=== PATIENT | male | born 1980 | race Caucasian/White ===

== ENCOUNTER 2018-08-07 15:29 | Emergency (ER) | payer OTHER ==
[~2018-08-07] VITALS: Ht 208.3 cm; Wt 149.7 kg
[~2018-08-07 15:29] MED LIST: ALBU90OI INH; CYCL10 PO; METH40 PO; Mobic15 MG PO; Zithromax250 MG PO
[2018-08-07] MEDS ORDERED: TESTOSTERO30 MG/1.5 INJ (15:44)
== END 2018-08-07 16:42 | disposition home or self-care (01) ==
LOC: ER 15:29
DX: L98.8 Other specified disorders of the skin and subcutaneous tissue (principal); Z79.899 Other long term (current) drug therapy
CPT/HCPCS: 99282

== ENCOUNTER 2023-10-03 10:24 | Emergency (ER) | payer OTHER ==
[~2023-10-03] VITALS: Ht 208.3 cm; Wt 136.1 kg
[~2023-10-03 10:24] MED LIST changes: +TESTOSTERO30 MG/1.5 INJ
[2023-10-03 10:34] VITALS: BP 143/99
[2023-10-03] MEDS ORDERED: ELIQUIS5 M2 PO (10:49)
== END 2023-10-03 10:53 | disposition home or self-care (01) ==
LOC: ER 10:24
DX: I82.432 Acute embolism and thrombosis of left popliteal vein (principal); I82.532 Chronic embolism and thrombosis of left popliteal vein; F17.200 Nicotine dependence, unspecified, uncomplicated
CPT/HCPCS: 99283-25

== ENCOUNTER 2024-09-06 22:36 | Emergency (ER) | payer OTHER ==
[~2024-09-06] VITALS: Ht 208.3 cm; Wt 131.5 kg
[~2024-09-06 22:36] MED LIST changes: +CEPH500 PO; +ELIQUIS5 M2 PO; +SULTRIDS PO
[2024-09-06 22:53] VITALS: BP 137/99
[2024-09-07 01:13] LABS: Chlamydia Trachomatis Urine NOT DETECTED (NOT DETECT); Neisseria Gonorrhoea Urine NOT DETECTED (NOT DETECT)
[2024-09-07] MEDS ORDERED: Vibramycin100 MG PO (01:17)
[2024-09-07] MEDS ORDERED: Doxycycline Hyclate 100 MG TAB PO ONE (01:20)
== END 2024-09-07 01:48 | disposition home or self-care (01) ==
LOC: ER 22:36
PROVIDERS: Physician Assistant
DX: A64 Unspecified sexually transmitted disease (principal); F17.200 Nicotine dependence, unspecified, uncomplicated; Z79.899 Other long term (current) drug therapy
CPT/HCPCS: 87491; 87591; 96372; 99283; A9270; J0696

== ENCOUNTER 2024-11-01 22:00 | Emergency (ER) | payer OTHER ==
[~2024-11-01] VITALS: Ht 208.3 cm; Wt 127.0 kg
[~2024-11-01 22:00] MED LIST changes: +Vibramycin100 MG PO
[2024-11-01 22:16] VITALS: BP 139/89
[2024-11-02 00:26] LABS: Chlamydia Trachomatis Urine NOT DETECTED (NOT DETECT); Neisseria Gonorrhoea Urine NOT DETECTED (NOT DETECT)
== END 2024-11-02 00:39 | disposition home or self-care (01) ==
LOC: ER 22:00
PROVIDERS: Physician Assistant
DX: Z20.2 Contact with and (suspected) exposure to infections with a predominantly sexual mode of transmission (principal); F17.200 Nicotine dependence, unspecified, uncomplicated; Z79.899 Other long term (current) drug therapy
CPT/HCPCS: 87491; 87591; 99283

== ENCOUNTER 2024-11-30 01:55 | Emergency (ER) | payer OTHER ==
[~2024-11-30] VITALS: Ht 208.3 cm; Wt 136.0 kg
[2024-11-30] MEDS ORDERED: PredniSONE 20 MG Tab PO ONE (05:10)
[2024-11-30] MEDS ORDERED: Ipratropium/Albuterol SulF 2.5-0.5MG/3 ML Amp INH ONE (05:10)
[2024-11-30] MEDS ORDERED: Ketorolac Tromethamine 30mg Vial IM ONE (05:10)
[2024-11-30] MEDS ORDERED: Cephalexin Monohydrate 500 MG Cap PO ONE ×2 (05:20→07:50)
[2024-11-30] MEDS ORDERED: Trimethoprim/Sulfamethoxazole DS Tab PO ONE ×2 (05:20→07:45)
[2024-11-30 05:46] LABS: CORONAVIRUS COVID-19 AG Negative (NEGATIVE); INFLUENZA A AG Negative (NEGATIVE); INFLUENZA B AG Negative (NEGATIVE)
[2024-11-30] MEDS ORDERED: Cephalexin Monohydrate 250 MG/5 ML UD BTL PO ONE (07:45)
[2024-11-30 09:15] LABS: Source, Urine Clean Catch
[2024-11-30 09:29] LABS: Appearance, Urine Clear (Clear); Bilirubin, Urine Neg (Neg); Blood, Urine 1+ (Neg); Color, Urine Yellow (P-Yellow); Glucose Qualitative, Urine Neg (Neg); Ketones, Urine Neg (Neg); Leukocyte Esterase, Urine Neg (Neg); Nitrite, Urine Neg (Neg); Protein, Urine 1+ (Neg); Urobilinogen, Urine 1+ (Normal)
[2024-11-30 09:52] LABS: Bacteria Rare /hpf; Red Blood Cells, Urine 0-2 /hpf (0-2); Squamous Epithelial Cells Rare /hpf (Few); White Blood Cells, Urine 0-2 /hpf (0-5)
[2024-11-30 11:19] LABS: Chlamydia Trachomatis Urine NOT DETECTED (NOT DETECT); Neisseria Gonorrhoea Urine NOT DETECTED (NOT DETECT)
[2024-11-30] MEDS ORDERED: CEPH500 PO (11:40)
[2024-11-30] MEDS ORDERED: BACTRIM DS TAB1 EAC1 PO (11:40)
[2024-11-30 11:50] VITALS: BP 119/78
== END 2024-11-30 11:44 | disposition home or self-care (01) ==
LOC: ER 01:55
PROVIDERS: Student in an Organized Health Care Education/Training Program
DX: L03.012 Cellulitis of left finger (principal); F17.200 Nicotine dependence, unspecified, uncomplicated
CPT/HCPCS: 20600; 36415; 71046; 73120; 81001; 84484; 85379; 87428-QW; 87491; 87591; 94640; 94664; 99284-25; A9270

== ENCOUNTER 2024-12-09 12:33 | Emergency (ER) | payer OTHER ==
[~2024-12-09] VITALS: Ht 208.3 cm; Wt 127.0 kg
[~2024-12-09 12:33] MED LIST changes: +BACTRIM DS TAB1 EAC1 PO
[2024-12-09 12:38] VITALS: BP 126/88
[2024-12-09 15:34] LABS: BASOPHILS ABSOLUTE AUTO 0.04 K/mm3 (0.00-0.23); BASOPHILS PERCENT AUTO 0 % (0-2); EOSINOPHILS ABSOLUTE AUTO 0.03 K/mm3 (0.00-0.68); EOSINOPHILS PERCENT AUTO 0 % (0-6); Hematocrit 47.4 % (37.0-53.0); IMMATURE GRAN ABSOLUTE AUTO 0.03 K/mm3 (0.00-0.10); IMMATURE GRAN PERCENT AUTO 0 % (0-1); LYMPHOCYTES ABSOLUTE AUTO 2.54 K/mm3 (0.84-5.20); LYMPHOCYTES PERCENT AUTO 24 % (21-46); MONOCYTES ABSOLUTE AUTO 0.46 K/mm3 (0.16-1.47); MONOCYTES PERCENT AUTO 4 % (4-13); Mean Corpuscular HGB 31.5 pg (26.0-34.0); Mean Corpuscular HGB Conc 33.8 g/dL (31.5-36.5); Mean Corpuscular Volume 93 fL (80-100); Mean Platelet Volume 10.1 fL (9.1-12.4); NEUTROPHILS ABSOLUTE AUTO 7.63 K/mm3 (1.96-9.15); NEUTROPHILS PERCENT AUTO 71 % (41-73); Platelet Count 283 K/mm3 (150-400); RDW Coefficient Variation 13.1 % (11.7-14.2); RDW Standard Deviation 44.8 fL (35.1-46.3); Red Blood Cell Count 5.08 M/mm3 (4.30-5.90); White Blood Cell Count 10.73 K/mm3 (4.00-11.30)
[2024-12-09] MEDS ORDERED: CEPH500 PO (16:01)
[2024-12-09] MEDS ORDERED: Bactrim Ds Tab1 EACH PO (16:01)
[2024-12-09 16:07] LABS: Albumin, Blood 3.8 g/dL (3.4-5.0); Albumin/Globulin Ratio 0.8 (0.8-1.8); Bilirubin, Total 0.4 mg/dL (0.1-1.0); Bun/Creatinine Ratio 12.7 (12.0-20.0); Calcium, Blood 9.9 mg/dL (8.5-10.1); Creatinine, Blood 0.79 mg/dL (0.60-1.20); Globulin, Blood 4.6 g/dL (2.2-4.0); Potassium, Blood 4.2 mmol/L (3.5-5.5); Total Protein, Blood 8.4 g/dL (6.4-8.2)
== END 2024-12-09 16:19 | disposition home or self-care (01) ==
LOC: ER 12:33
PROVIDERS: Physician Assistant
DX: L03.012 Cellulitis of left finger (principal); F17.200 Nicotine dependence, unspecified, uncomplicated; Z86.718 Personal history of other venous thrombosis and embolism; Z79.01 Long term (current) use of anticoagulants; Z59.89 Other problems related to housing and economic circumstances
CPT/HCPCS: 36415; 73140; 80053; 85025; 99283-25

== ENCOUNTER 2024-12-28 17:16 | Emergency (ER) | payer OTHER ==
[~2024-12-28] VITALS: Ht 208.3 cm; Wt 127.0 kg
[~2024-12-28 17:16] MED LIST changes: +Bactrim Ds Tab1 EACH PO
[2024-12-28 17:46] VITALS: BP 135/80
[2024-12-28] MEDS ORDERED: Cephalexin Monohydrate 500 MG Cap PO ONE (19:55)
[2024-12-28] MEDS ORDERED: CEPH500 PO (19:55)
== END 2024-12-28 20:00 | disposition home or self-care (01) ==
LOC: ER 17:16
DX: T23.022A Burn of unspecified degree of single left finger (nail) except thumb, initial encounter (principal); L08.89 Other specified local infections of the skin and subcutaneous tissue; Z79.01 Long term (current) use of anticoagulants; F17.200 Nicotine dependence, unspecified, uncomplicated; X08.8XXA Exposure to other specified smoke, fire and flames, initial encounter
CPT/HCPCS: 99282; A9270

== ENCOUNTER 2025-01-23 02:45 | Emergency (ER) | payer OTHER ==
[~2025-01-23] VITALS: Ht 188 cm; Wt 136.1 kg
[2025-01-23] MEDS ORDERED: Trimethoprim/Sulfamethoxazole DS Tab PO ONE (04:40)
[2025-01-23 04:50] VITALS: BP 135/87
== END 2025-01-23 05:00 | disposition home or self-care (01) ==
LOC: ER 02:45
DX: L03.012 Cellulitis of left finger (principal); Z79.2 Long term (current) use of antibiotics; Z79.01 Long term (current) use of anticoagulants; Z79.899 Other long term (current) drug therapy; F17.200 Nicotine dependence, unspecified, uncomplicated
CPT/HCPCS: 99283; A9270

== ENCOUNTER 2025-02-23 00:21 | Day surgery (SDC) | payer OTHER | END 2025-02-23 08:32 | disposition home or self-care (01) | LOC: ATC 00:21 | DX: Z45.2 Encounter for adjustment and management of vascular access device (principal); M86.9 Osteomyelitis, unspecified; F17.210 Nicotine dependence, cigarettes, uncomplicated | CPT/HCPCS: 99211 ==

== ENCOUNTER 2025-02-23 09:08 | Day surgery (SDC) | payer OTHER ==
[~2025-02-23] VITALS: Ht 208.3 cm; Wt 148.1 kg
[~2025-02-23 09:08] MED LIST changes: +Lidocaine HCl 2% 10 ML SDA ONE; +NS 500 ML IV ONE
[2025-02-23] MEDS ORDERED: CeFAZolin Sodium 2,000 MG VIAL ONE (10:11)
[2025-02-23] MEDS ORDERED: propofoL 20 ML IV ONE ×2 (10:19→11:15)
[2025-02-23] MEDS ORDERED: CeFAZolin Sodium 3,000 MG VIAL ONE (10:22)
--- NOTE | 2025-02-23 10:45 | NUR ---
02/23/25 1045 Maritza Patrick PATIENT ARRIVED WITH PIV TO R HAND THAT WAS PL[facility] THIS AM PRIOR TO ARRIVING AT [facility]. 1038: TIMEOUT FOR PRE-OP INJECTION, PRE-OP INJECTION BY DR WAKEFIELD OF 10 CC OF MIX OF 9 CC LIDOCAINE 1% WITH EPI 1;100,000 WITH 1 CC SODIUM BICARB 1038: RN NOTED TO DR WAKEFIELD THAT PATIENT FELL ASLEEP WHILE STAFF WERE TALKING TO HIM BUT HE REPORTED SLEEPING "JUST FINE" LAST NIGHT
[2025-02-23] MEDS ORDERED: NS 500 ML IV ONE (10:46)
--- NOTE | 2025-02-23 11:27 | NUR ---
02/23/25 Rico7 Alma Pyle PT NEED EXTRA REASSURANCE TO HOLD STILL AND RELAX THE OP ARM. PT MOVING ARMS AND LEGS IN BED, C/O PAIN. MEDICATED PER MAURICIO TATE
--- NOTE | 2025-02-23 11:51 | NUR ---
02/23/25 1151 Diana Wetzel PT TO PACU, ORAL AIRWAY IN PLACE. VSS. IV PATENT. DRESSING CDI. PT DOES NOT AROUSE AT THIS TIME
--- NOTE | 2025-02-23 12:21 | NUR ---
02/23/25 1221 Diana Wetzel pt sat up in bed, denies dizziness. patient able to ambulate to wheelchair. pt assisted to bathroom x2 RNs.
[2025-02-23 12:33] VITALS: BP 114/72
== END 2025-02-23 13:15 | disposition home or self-care (01) ==
LOC: ORSCSDS 09:08
PROVIDERS: Orthopaedic Surgery
PROC: 0X6R0Z3 Detachment at Left Middle Finger, Low, Open Approach (ICD-10-PCS; principal; 2025-02-23 11:00)
DX: M86.142 Other acute osteomyelitis, left hand (principal); G47.33 Obstructive sleep apnea (adult) (pediatric); E66.9 Obesity, unspecified; Z68.34 Body mass index [BMI] 34.0-34.9, adult; F17.210 Nicotine dependence, cigarettes, uncomplicated; Z86.718 Personal history of other venous thrombosis and embolism; Z79.899 Other long term (current) drug therapy
CPT/HCPCS: 88305; J0690; J2003; J2704; J7040

== ENCOUNTER 2025-03-14 02:41 | Emergency (ER) | payer OTHER ==
[~2025-03-14] VITALS: Ht 208.3 cm; Wt 136.1 kg
[~2025-03-14 02:41] MED LIST changes: -Lidocaine HCl 2% 10 ML SDA ONE; -NS 500 ML IV ONE
[2025-03-14 02:54] VITALS: BP 154/100
[2025-03-14] MEDS ORDERED: Hydrocortisone 2.5% Cream 30 GM Tube TOP SCH (05:10)
[2025-03-14] MEDS ORDERED: Hydrocortisone 1% Cream 30 gm TOP SCH (05:59)
[2025-03-14] MEDS ORDERED: HYDROCORTISONE30 GM EXT (06:09)
== END 2025-03-14 06:05 | disposition home or self-care (01) ==
LOC: ER 02:41
DX: L23.7 Allergic contact dermatitis due to plants, except food (principal); Z59.89 Other problems related to housing and economic circumstances; F17.200 Nicotine dependence, unspecified, uncomplicated
CPT/HCPCS: 99282; A9270

== ENCOUNTER 2025-11-03 02:03 | Emergency (ER) | payer OTHER ==
[~2025-11-03] VITALS: Ht 208.3 cm; Wt 136.1 kg
[~2025-11-03 02:03] MED LIST changes: +HYDROCORTISONE30 GM EXT; +IBU600 MG PO
[2025-11-03 03:01] VITALS: BP 136/91
[2025-11-03] MEDS ORDERED: PRED20 PO (04:11)
== END 2025-11-03 04:39 | disposition home or self-care (01) ==
LOC: ER 02:03
DX: L23.7 Allergic contact dermatitis due to plants, except food (principal); F17.200 Nicotine dependence, unspecified, uncomplicated; Z79.899 Other long term (current) drug therapy
CPT/HCPCS: 99282; J7512